=== PATIENT | female | born 1940 | race Caucasian/White ===

== ENCOUNTER 2018-04-02 09:34 | Outpatient (CLI) | payer BC | END 2018-04-02 09:35 | disposition home or self-care (01) | LOC: BICMAMMO 09:34 | PROVIDERS: ATTEND Internal Medicine Hematology & Oncology | DX: N64.89 Other specified disorders of breast (principal); Z85.3 Personal history of malignant neoplasm of breast | CPT/HCPCS: 77066; G0279 ==

== ENCOUNTER 2018-06-13 13:21 | Outpatient (CLI) | payer BC ==
--- NOTE | 2018-06-13 16:36 | MRI ---
MRI LUMBAR SPINE NONCONTRAST: DATE: 06/13/2018 HISTORY: A 78-year-old female with M47.816, facet arthritis, degenerative, lumbar spine. Chronic low back pain and bilateral lumbar radiculopathy. COMPARISON: No prior MRIs or CTs of the lumbar spine. FINDINGS: There are five lumbar type vertebrae. Vertebral body heights are maintained. No major bone marrow s ignal abnormality identified. Moderate disk space narrowing at T11-T12. Mild disk space narrowing a t L4-L5. Moderate to severe disk space narrowing at L5-S1 (with adjacent mild modic type I endplate signal changes). At the mid and lower lumbar spine, the spinal canal is diffusely small in caliber o n a developmental basis due to congenitally short pedicles. This is exacerbated by lumbar spondylosi s. This is not true in the upper lumbar spine. Furthermore, in the lower lumbar spine, there is prom inent epidural fat, which further narrows the thecal sac. T12-L1: Very mild central and bilateral paracentral broad-based disk protrusion. No central stenosi s or neural foraminal stenosis. L1-L2: The conus medullaris terminates at this level. Small broad-based central and bilateral parac entral disk protrusion. No central stenosis. No neural foraminal stenosis. L2-L3: Mild diffuse disk bulge. No high grade neural foraminal stenosis. Mild central spinal canal stenosis. Moderate thecal sac stenosis. Mild bilateral degenerative facet changes. L3-L4: Diffuse disk bulge. Moderate ligamentum flavum thickening. Moderate bilateral degenerative facet changes. Mild bilateral neural foraminal stenosis. Moderate central spinal canal stenosis. M oderate to severe thecal sac stenosis. L4-L5: Bilateral moderate to severe degenerative facet changes result in a mild grade 1 anterolisthe sis of L4 on L5. Thickened ligamentum flavum. Mild diffuse disk bulge. Mild bilateral neural rufus inal stenosis. Moderate to severe central spinal canal stenosis. Severe thecal sac stenosis. L5-S1: Mild diffuse disk bulge. Posterior midline annular fissure. Bilateral degenerative facet ch anges, mild on the right and moderate to severe on the left. No significant neural foraminal stenosi s, although the lateral component of the broad-based disk-osteophyte complex on the right contacts th e exiting right L5 nerve root, perhaps mildly indenting it. Mild to moderate central spinal canal st enosis. Moderate to severe thecal sac stenosis due to epidural lipomatosis. IMPRESSION: 1. Lumbar spondylosis, including facet osteoarthrosis at several levels, and high grade degenerative disk changes at L5-S1. 2. Mild grade 1 spondylolisthesis at L4-L5 due to bilateral high grade facet osteoarthrosis. 3. High grade central spinal canal stenosis at L3-L4 and at L4-L5. 4. No high grade neural foraminal stenosis at any level. MARA Burnham POS: FARHAN
== END 2018-06-13 13:22 | disposition home or self-care (01) ==
LOC: SCSMRI 13:21
PROVIDERS: ATTEND Family Medicine
DX: M47.896 Other spondylosis, lumbar region (principal); M47.897 Other spondylosis, lumbosacral region; M43.16 Spondylolisthesis, lumbar region; M48.061 Spinal stenosis, lumbar region without neurogenic claudication
CPT/HCPCS: 72148

== ENCOUNTER 2018-10-28 13:45 | Outpatient (CLI) | payer BC | END 2018-10-28 13:46 | disposition home or self-care (01) | LOC: BICMAMMO 13:45 | PROVIDERS: ATTEND Specialist | DX: C50.811 Malignant neoplasm of overlapping sites of right female breast (principal); L90.5 Scar conditions and fibrosis of skin; Z98.890 Other specified postprocedural states | CPT/HCPCS: G0279 ==

== ENCOUNTER 2019-08-25 12:41 | Outpatient (CLI) | payer BC ==
--- NOTE | 2019-08-26 10:49 | PFT ---
PATIENT HISTORY: HEIGHT: 67 IN WEIGHT: 220 LBS SMOKER: NO HOW LONG: NEVER PACKS PER DAY: PRODUCTIVE COUGH: LUNG DISEASE: PHYSICIAN INTERPRETATION FINAL REPORT: Patient had good effort and good cooperation. FVC 2.48 (87%), FEV1 1.80 (84%), FEV1/FVC 0.73. RV 1.67 (75%), TLC 4.44 (87%) DIFFUSION 10.18 (46%) The FEV1 and FVC fall within the lower limits of normal. The ratio is also normal suggesting there is no evidence of obstructive air flow limitation. Residual Volume is mildly reduced. The Total Lung Capacity falls within the normal limits. The Diffusion Capacity is moderately impaired. Compared to 2015, these values are stable. There has been an insignificant improvement in the FVC, stable FEV1, and insignificant reduction to the Diffusion Capacity. IMPRESSION: Overall, these pulmonary function studies are most consistent with isolated reduced Diffusion Capacity with low normal spirometry values that have been stable since 2015. Shipping Weigher: JUSTIN Gun Synchronizer: JUSTIN GRIFFIN
== END 2019-08-25 12:42 | disposition home or self-care (01) ==
LOC: CP 12:41
PROVIDERS: ATTEND Internal Medicine
DX: R06.09 Other forms of dyspnea (principal)
CPT/HCPCS: 94060; 94727; 94729

== ENCOUNTER 2021-02-21 10:15 | Outpatient (CLI) | payer MEDICARE, BC | END 2021-02-21 10:16 | disposition home or self-care (01) | LOC: BICMAMMO 10:15 | PROVIDERS: ATTEND Internal Medicine Hematology & Oncology | DX: Z08 Encounter for follow-up examination after completed treatment for malignant neoplasm (principal); Z85.3 Personal history of malignant neoplasm of breast | CPT/HCPCS: 77066; G0279 ==

== ENCOUNTER 2023-07-08 10:13 | Outpatient (CLI) | payer MEDICARE | END 2023-07-08 10:14 | disposition home or self-care (01) | LOC: BICMAMMO 10:13 | PROVIDERS: ATTEND Internal Medicine | DX: Z12.31 Encounter for screening mammogram for malignant neoplasm of breast (principal); Z91.89 Other specified personal risk factors, not elsewhere classified; Z98.890 Other specified postprocedural states | CPT/HCPCS: 77063; 77067 ==

== ENCOUNTER 2024-08-18 19:49 | Inpatient (IN) | payer MEDICARE ==
[2024-08-18] MEDS ORDERED: Ipratropium/Albuterol 3 ML NEB NEB PRN (21:00)
[2024-08-18 22:02] VITALS: BMI 35.1
[2024-08-18] MEDS: Morphine 2 MG/ML VIAL SLOW IVP PRN (22:14)
[2024-08-18] MEDS: Famotidine/PF 20 mg/2ml Vial SLOW IVP SCH (22:14)
[2024-08-18] MEDS: Sodium Chloride 0.9% 1,000 ML IV SCH ×2 (22:15→23:45)
[2024-08-18] MEDS: Acetaminophen 325 MG TAB PO SCH (23:43)
[2024-08-18] MEDS: Phytonadione 5 MG TAB PO SCH (23:59)
[2024-08-19] MEDS: Acetaminophen/Codeine 30-300mg Tablet PO PRN (00:03)
[2024-08-19] MEDS: Levothyroxine Sodium 25 MCG TAB PO SCH (00:15)
[2024-08-19 01:34] LABS: INR-International Normal Ratio 2.3; PTT 35.4 sec (22.9-36.1); Prothrombin Time 25.1 sec (12.0-14.7)
[2024-08-19 05:16] LABS: Anion Gap 14 mmol/L (10-20); BUN (Urea Nitrogen) 13 mg/dL (9.8-20.1); Calc. Creatinine Clearance 89 mL/min (70-130); Calcium 8.8 mg/dL (7.8-10.44); Carbon Dioxide 22 mmol/L (23-31); Chloride 107 mmol/L (98-107); Estimated GFR 81; Glucose 149 mg/dL (83-110); Potassium 4.3 mmol/L (3.5-5.1); Sodium 139 mmol/L (136-145)
[2024-08-19 05:59] LABS: #Basophils 0.03 10x3/uL (0.0-0.2); #Eosinophils Less than 0.03 10x3/uL (0.0-0.7); %Basophils 0.2 % (0.0-1.0); %Lymphocytes 10.1 % (21.0-51.0); %Monocytes 7.6 % (0.0-10.0); %Neutrophils 81.6 % (42.0-75.0); Hematocrit 51.2 % (36.0-47.0); Hemoglobin 16.2 g/dL (12.0-16.0); Mean Corpuscular HGB CONC 31.6 g/dL (32.0-36.0); Mean Corpuscular Hemoglobin 29.6 pg (27.0-31.0); Mean Corpuscular Volume 93.4 fL (78.0-98.0); Mean Platelet Volume 10.2 fL (7.4-10.4); Platelet Count 216 10x3/uL (130-400); RBC Distribution Width 14.8 % (11.5-14.5); Red Blood Cell (RBC) Count 5.48 mill/uL (4.20-5.40)
[2024-08-19 06:46] LABS: INR-International Normal Ratio 2.1; PTT 38.6 sec (22.9-36.1); Prothrombin Time 24.1 sec (12.0-14.7)
[2024-08-19] MEDS: Lactulose 20 GM (30 mL) UDCUP PO SCH (08:33)
[2024-08-19] MEDS: Oxybutynin ER 5 MG TAB PO SCH (09:04)
[2024-08-19] MEDS: Senokot S 8.6-50 MG TAB PO SCH (09:17)
[2024-08-19] MEDS: Polyethylene Glycol 3350 17 GM Packet PO SCH (09:17)
[2024-08-19] MEDS: Carvedilol 3.125 MG TAB PO SCH (21:50)
[2024-08-20 04:46] LABS: #Basophils 0.04 10x3/uL (0.0-0.2); %Basophils 0.3 % (0.0-1.0); %Eosinophils 0.8 % (0.0-10.0); %Lymphocytes 13.3 % (21.0-51.0); %Monocytes 10.1 % (0.0-10.0); %Neutrophils 75.1 % (42.0-75.0); Hematocrit 49.9 % (36.0-47.0); Hemoglobin 16.2 g/dL (12.0-16.0); Mean Corpuscular HGB CONC 32.5 g/dL (32.0-36.0); Mean Corpuscular Hemoglobin 29.3 pg (27.0-31.0); Mean Corpuscular Volume 90.2 fL (78.0-98.0); Mean Platelet Volume 10.2 fL (7.4-10.4); Platelet Count 220 10x3/uL (130-400); Red Blood Cell (RBC) Count 5.53 mill/uL (4.20-5.40)
[2024-08-20] MEDS: Metoprolol Tartrate 5 MG (5 mL) VIAL IVP SCH (04:51)
[2024-08-20 04:59] LABS: INR-International Normal Ratio 1.9; PTT 43.6 sec (22.9-36.1); Prothrombin Time 21.5 sec (12.0-14.7)
[2024-08-20 05:06] LABS: Troponin I 0.018 ng/mL (< 0.028)
[2024-08-20 05:30] LABS: ALT (SGPT) 17 U/L (8-55); AST (SGOT) 33 U/L (5-34); Albumin 3.5 g/dL (3.4-4.8); Alkaline Phosphatase 93 U/L (40-110); Anion Gap 14 mmol/L (10-20); BUN (Urea Nitrogen) 10 mg/dL (9.8-20.1); Bilirubin, Total 2.5 mg/dL (0.2-1.2); Calc. Creatinine Clearance 94 mL/min (70-130); Calcium 8.8 mg/dL (7.8-10.44); Carbon Dioxide 24 mmol/L (23-31); Chloride 107 mmol/L (98-107); Estimated GFR 86; Globulin 3.5 g/dL (2.4-3.5); Glucose 117 mg/dL (83-110); Potassium 3.5 mmol/L (3.5-5.1); Sodium 141 mmol/L (136-145)
[2024-08-20 06:30] LABS: Bacteria/HPF None Seen HPF (None Seen); Bilirubin Negative (Negative); Blood, Urine 1+ (Negative); CAUTI Indications for Culture Alt mental st,lethar; Clarity Clear (Clear); Glucose, Urine (Dipstick) Normal (Negative); Ketone, Urine Negative (Negative); Leukocyte Negative Leu/uL (Negative); Nitrite Negative (Negative); Protein, Urine (Dipstick) Negative (Neg-Trace); RBC/HPF 0-3 HPF (0-3); Specific Gravity, Urine 1.006 (1.002-1.036); Squamous Epithelial None Seen HPF (0-3); Urobilinogen Normal mg/dL (Less than 2); WBC/HPF 0-3 HPF (0-3)
[2024-08-20 06:32] LABS: Urine Culture Reflex No No
[2024-08-20] MEDS ORDERED: Electrolyte Replacement Protocol FS PRN (07:30)
[2024-08-20] MEDS: Sodium Chloride 0.9% 1,000 ML IV SCH (08:50)
[2024-08-20] MEDS: Potassium Chloride 20 MEQ in Premix 1 BAG IVPB SCH (08:55)
[2024-08-20] MEDS ORDERED: Levothyroxine Sodium 25 MCG TAB PO SCH (09:00)
[2024-08-20] MEDS: Digoxin 0.5 MG/2 ML AMP SLOW IVP SCH (10:56)
[2024-08-20] MEDS: Diltiazem HCl/D5W 125 MG in Premix 1 BAG IVPB SCH (10:57)
[2024-08-20] MEDS: Atorvastatin Calcium 40 MG TAB PO SCH (11:04)
[2024-08-20] MEDS: Digoxin 0.5 MG/2 ML AMP SLOW IVP ONE (11:26)
[2024-08-20] MEDS ORDERED: Lidocaine 1% PF 5 ML VIAL ONE (14:52)
[2024-08-20] MEDS ORDERED: PROPOFOL 20 ML ONE (14:52)
[2024-08-20] MEDS ORDERED: fentaNYL 50 mcg/mL 1 mL Vial ONE (14:52)
[2024-08-20] MEDS ORDERED: PHENYLEPHRINE-NS 100 MCG/ML 10 ML SYRINGE ONE (14:52)
[2024-08-20] MEDS ORDERED: Rocuronium Bromide 10 MG/ML (10ML VIAL) ONE (14:52)
[2024-08-20] MEDS ORDERED: Etomidate 40 MG (20 mL) VIAL ONE (14:53)
[2024-08-20] MEDS ORDERED: Esmolol 100 MG/10 ML VIAL ONE (15:11)
[2024-08-20 15:43] LABS: Potassium 4.3 mmol/L (3.5-5.1)
[2024-08-20] MEDS ORDERED: CEFAZOLIN 1 GM VIAL ONE (15:51)
[2024-08-20] MEDS ORDERED: fentaNYL PF 100 MCG/2 ML SYRINGE ONE (16:02)
[2024-08-20] MEDS ORDERED: SUGAMMADEX SODIUM 200 MG/2 ML VIAL ONE (16:15)
[2024-08-20] MEDS: CEFAZOLIN 2 GM in Sodium Chloride 0.9% 100 ML IVPB SCH (21:35)
[2024-08-21 04:03] LABS: #Basophils 0.03 10x3/uL (0.0-0.2); %Basophils 0.2 % (0.0-1.0); %Eosinophils 0.8 % (0.0-10.0); %Lymphocytes 14.7 % (21.0-51.0); %Monocytes 13.9 % (0.0-10.0); %Neutrophils 70.1 % (42.0-75.0); Hematocrit 40.7 % (36.0-47.0); Hemoglobin 12.9 g/dL (12.0-16.0); Mean Corpuscular HGB CONC 31.7 g/dL (32.0-36.0); Mean Corpuscular Hemoglobin 29.3 pg (27.0-31.0); Mean Corpuscular Volume 92.5 fL (78.0-98.0); Mean Platelet Volume 10.5 fL (7.4-10.4); Platelet Count 179 10x3/uL (130-400); RBC Distribution Width 15.1 % (11.5-14.5)
[2024-08-21 04:06] LABS: INR-International Normal Ratio 1.3; Prothrombin Time 16.5 sec (12.0-14.7)
[2024-08-21 04:09] LABS: Anion Gap 10 mmol/L (10-20); BUN (Urea Nitrogen) 16 mg/dL (9.8-20.1); Calc. Creatinine Clearance 90 mL/min (70-130); Carbon Dioxide 23 mmol/L (23-31); Chloride 108 mmol/L (98-107); Estimated GFR 82; Glucose 122 mg/dL (83-110); Potassium 3.4 mmol/L (3.5-5.1); Sodium 138 mmol/L (136-145)
[2024-08-21] MEDS: Digoxin 0.125 MG TAB PO SCH (08:35)
[2024-08-21] MEDS: Potassium Chloride 20 MEQ TAB PO SCH ×2 (08:38→08:45)
[2024-08-21] MEDS: Enoxaparin 100 MG (1 mL) SYRINGE SC SCH (08:50)
[2024-08-21] MEDS: dilTIAZem CD 120 MG CAP PO SCH (10:58)
[2024-08-21] MEDS ORDERED: Warfarin Sodium 2 MG TAB PO SCH (17:00)
[2024-08-21] MEDS: Warfarin Sodium 5 MG TAB PO SCH (17:42)
[2024-08-21] MEDS: Fleet Saline Enema 133 ML BOT PR SCH (17:43)
[2024-08-21] MEDS: Glycerin Adult Supp. (12 ct jar) PR SCH (18:54)
[2024-08-22 05:35] LABS: Hematocrit 37.1 % (36.0-47.0); Hemoglobin 12.1 g/dL (12.0-16.0); Mean Corpuscular HGB CONC 32.6 g/dL (32.0-36.0); Mean Corpuscular Hemoglobin 29.7 pg (27.0-31.0); Mean Corpuscular Volume 91.2 fL (78.0-98.0); Mean Platelet Volume 10.3 fL (7.4-10.4); Platelet Count 203 10x3/uL (130-400); RBC Distribution Width 15.3 % (11.5-14.5); Red Blood Cell (RBC) Count 4.07 mill/uL (4.20-5.40)
[2024-08-22 05:39] LABS: INR-International Normal Ratio 1.4; Prothrombin Time 16.8 sec (12.0-14.7)
[2024-08-22 05:49] LABS: Anion Gap 11 mmol/L (10-20); BUN (Urea Nitrogen) 16 mg/dL (9.8-20.1); Calc. Creatinine Clearance 92 mL/min (70-130); Calcium 8.2 mg/dL (7.8-10.44); Carbon Dioxide 19 mmol/L (23-31); Chloride 111 mmol/L (98-107); Estimated GFR 85; Glucose 136 mg/dL (83-110); Potassium 3.7 mmol/L (3.5-5.1); Sodium 137 mmol/L (136-145)
[2024-08-22 06:14] LABS: Band 7 % (5-11); Burr Cells MODERATE= 6-15 cells HPF (0-1); Elliptocytes SLIGHT = 2-5 cells HPF (0-1); Lymphocytes 3 % (21-51); Macrocytosis SLIGHT = 6-15 cells HPF (0-5); Monocytes 4 % (0-10); Neutrophil 86 % (42-75); Platelet Adequacy Comment Platelets Normal; Poikilocytosis MODERATE=16-30 cells HPF (0-5); Polychromasia SLIGHT = 2-3 cells HPF (0-2)
[2024-08-22 08:29] LABS: ALT (SGPT) 15 U/L (8-55); AST (SGOT) 26 U/L (5-34); Albumin 2.5 g/dL (3.4-4.8); Alkaline Phosphatase 78 U/L (40-110); Bilirubin, Direct 0.6 mg/dL (0.1-0.3); Bilirubin, Total 2.7 mg/dL (0.2-1.2); Lipase 7 U/L (8-78); Protein, Total 5.5 g/dL (5.8-8.1)
[2024-08-22] MEDS: Milk Of Magnesia 30 ML UDCUP PO PRN (08:38)
[2024-08-22] MEDS: Bisacodyl 5 MG TAB PO PRN (08:38)
[2024-08-22] MEDS: dilTIAZem CD 120 MG CAP PO SCH (08:39)
[2024-08-22] MEDS ORDERED: Bisacodyl 5 MG TAB PO PRN (12:03)
[2024-08-22] MEDS: Fleet Saline Enema 133 ML BOT PR SCH (16:55)
[2024-08-22] MEDS: Naloxegol 12.5 MG TAB PO SCH (16:55)
[2024-08-23] MEDS: Ondansetron PF 4 MG/2 ML Vial IVP PRN (05:56)
[2024-08-23 07:03] LABS: #Basophils 0.06 10x3/uL (0.0-0.2); %Basophils 0.2 % (0.0-1.0); %Eosinophils 0.7 % (0.0-10.0); %Lymphocytes 8.7 % (21.0-51.0); %Neutrophils 82.5 % (42.0-75.0); Hematocrit 35.1 % (36.0-47.0); Mean Corpuscular HGB CONC 31.3 g/dL (32.0-36.0); Mean Corpuscular Hemoglobin 29.7 pg (27.0-31.0); Mean Corpuscular Volume 94.9 fL (78.0-98.0); Mean Platelet Volume 10.4 fL (7.4-10.4); Platelet Count 213 10x3/uL (130-400); RBC Distribution Width 15.6 % (11.5-14.5)
[2024-08-23 07:23] LABS: INR-International Normal Ratio 1.9; Prothrombin Time 22.1 sec (12.0-14.7)
[2024-08-23] MEDS ORDERED: Naloxegol 12.5 MG TAB PO SCH (07:30)
[2024-08-23 07:45] LABS: Anion Gap 9 mmol/L (10-20); BUN (Urea Nitrogen) 21 mg/dL (9.8-20.1); Calc. Creatinine Clearance 80 mL/min (70-130); Carbon Dioxide 21 mmol/L (23-31); Chloride 110 mmol/L (98-107); Estimated GFR 71; Glucose 90 mg/dL (83-110); Magnesium 2.2 mg/dL (1.6-2.6); Potassium 3.2 mmol/L (3.5-5.1); Sodium 137 mmol/L (136-145)
[2024-08-23 07:46] LABS: ALT (SGPT) 15 U/L (8-55); AST (SGOT) 25 U/L (5-34); Albumin 2.1 g/dL (3.4-4.8); Alkaline Phosphatase 80 U/L (40-110); Bilirubin, Direct 0.6 mg/dL (0.1-0.3); Bilirubin, Total 1.8 mg/dL (0.2-1.2); Lipase 7 U/L (8-78); Protein, Total 4.9 g/dL (5.8-8.1)
[2024-08-23] MEDS ORDERED: Polyethylene Glycol 3350 17 GM Packet PO SCH (09:00)
[2024-08-23] MEDS: Potassium Chloride 20 MEQ TAB PO SCH (09:40)
[2024-08-23] MEDS: Warfarin Sodium 2 MG TAB PO SCH (17:31)
[2024-08-24 05:31] LABS: #Basophils 0.05 10x3/uL (0.0-0.2); %Basophils 0.3 % (0.0-1.0); %Eosinophils 1.6 % (0.0-10.0); %Lymphocytes 12.5 % (21.0-51.0); %Monocytes 7.8 % (0.0-10.0); Hemoglobin 8.9 g/dL (12.0-16.0); Mean Corpuscular HGB CONC 29.7 g/dL (32.0-36.0); Mean Corpuscular Hemoglobin 29.6 pg (27.0-31.0); Mean Corpuscular Volume 99.7 fL (78.0-98.0); Mean Platelet Volume 11.9 fL (7.4-10.4); Platelet Count 107 10x3/uL (130-400); RBC Distribution Width 15.8 % (11.5-14.5); Red Blood Cell (RBC) Count 3.01 mill/uL (4.20-5.40)
[2024-08-24 06:30] LABS: INR-International Normal Ratio 2.8; Prothrombin Time 29.4 sec (12.0-14.7)
[2024-08-24 06:57] LABS: Calcium 7.5 mg/dL (7.8-10.44); Chloride 109 mmol/L (98-107); Potassium 3.8 mmol/L (3.5-5.1); Sodium 137 mmol/L (136-145)
[2024-08-24 06:58] LABS: Glucose 90 mg/dL (83-110)
[2024-08-24 06:59] LABS: Anion Gap 11 mmol/L (10-20); Carbon Dioxide 21 mmol/L (23-31)
[2024-08-24 07:02] LABS: BUN (Urea Nitrogen) 21 mg/dL (9.8-20.1); Calc. Creatinine Clearance 92 mL/min (70-130); Estimated GFR 85
[2024-08-24 07:03] LABS: Magnesium 2.1 mg/dL (1.6-2.6)
[2024-08-24] MEDS: Famotidine 20 MG TAB PO SCH (08:18)
[2024-08-24] MEDS: Gabapentin 300 MG CAP PO SCH ×2 (10:21→20:15)
[2024-08-24 10:38] VITALS: BMI 35.1
[2024-08-24 15:56] LABS: Hematocrit 32.9 % (36.0-47.0); Hemoglobin 9.9 g/dL (12.0-16.0); Platelet Count 223 10x3/uL (130-400)
[2024-08-24 16:10] LABS: Iron 23 ug/dL (50-170); Iron Binding Capacity, Total 180 mcg/dL (265-497)
[2024-08-24] MEDS: Aspirin 81 mg Enteric Coated Tablet PO SCH (21:03)
[2024-08-24 21:06] LABS: #Basophils 0.07 10x3/uL (0.0-0.2); %Basophils 0.4 % (0.0-1.0); %Eosinophils 1.5 % (0.0-10.0); %Lymphocytes 10.7 % (21.0-51.0); %Monocytes 9.1 % (0.0-10.0); %Neutrophils 77.2 % (42.0-75.0); Hematocrit 31.3 % (36.0-47.0); Hemoglobin 9.3 g/dL (12.0-16.0); Mean Corpuscular HGB CONC 29.7 g/dL (32.0-36.0); Mean Corpuscular Hemoglobin 29.8 pg (27.0-31.0); Mean Corpuscular Volume 100.3 fL (78.0-98.0); Mean Platelet Volume 10.6 fL (7.4-10.4); Platelet Count 199 10x3/uL (130-400); RBC Distribution Width 15.9 % (11.5-14.5); Red Blood Cell (RBC) Count 3.12 mill/uL (4.20-5.40)
[2024-08-24 21:57] LABS: Anion Gap 15 mmol/L (10-20); BUN (Urea Nitrogen) 17 mg/dL (9.8-20.1); Calc. Creatinine Clearance 98 mL/min (70-130); Calcium 7.7 mg/dL (7.8-10.44); Carbon Dioxide 19 mmol/L (23-31); Chloride 109 mmol/L (98-107); Estimated GFR 87; Glucose 87 mg/dL (83-110); Potassium 3.7 mmol/L (3.5-5.1); Sodium 139 mmol/L (136-145)
[2024-08-24] MEDS: Albumin 5% 12.5 GM (250 mL) BOT IVPB SCH (22:31)
[2024-08-24 23:58] LABS: Troponin I 0.016 ng/mL (< 0.028)
[2024-08-25] MEDS: Lactated Ringer's 500 ML IV SCH (01:20)
[2024-08-25] MEDS: Lactated Ringer's 1,000 ML IV SCH (01:32)
[2024-08-25 05:04] LABS: #Basophils 0.03 10x3/uL (0.0-0.2); %Basophils 0.2 % (0.0-1.0); %Eosinophils 1.8 % (0.0-10.0); %Lymphocytes 11.7 % (21.0-51.0); %Monocytes 10.1 % (0.0-10.0); Hematocrit 27.9 % (36.0-47.0); Hemoglobin 8.8 g/dL (12.0-16.0); Mean Corpuscular HGB CONC 31.5 g/dL (32.0-36.0); Mean Corpuscular Hemoglobin 29.2 pg (27.0-31.0); Mean Corpuscular Volume 92.7 fL (78.0-98.0); Mean Platelet Volume 10.3 fL (7.4-10.4); Platelet Count 207 10x3/uL (130-400); RBC Distribution Width 15.7 % (11.5-14.5); Red Blood Cell (RBC) Count 3.01 mill/uL (4.20-5.40)
[2024-08-25 05:24] LABS: Anion Gap 10 mmol/L (10-20); BUN (Urea Nitrogen) 12 mg/dL (9.8-20.1); Calc. Creatinine Clearance 113 mL/min (70-130); Calcium 7.8 mg/dL (7.8-10.44); Carbon Dioxide 24 mmol/L (23-31); Chloride 107 mmol/L (98-107); Estimated GFR 90; Glucose 85 mg/dL (83-110); Magnesium 1.9 mg/dL (1.6-2.6); Potassium 3.3 mmol/L (3.5-5.1); Sodium 138 mmol/L (136-145)
[2024-08-25 05:30] LABS: INR-International Normal Ratio 2.4; Prothrombin Time 26.4 sec (12.0-14.7)
[2024-08-25] MEDS: Potassium Chloride 20 MEQ TAB PO SCH (06:46)
[2024-08-25] MEDS: Magnesium 2 GM/50 ML(in water) 2 GM in Premix 1 BAG IVPB SCH (08:11)
[2024-08-25] MEDS: Ferrous Sulfate 325 MG TAB PO SCH (08:13)
[2024-08-25] MEDS: Ascorbic Acid 500 mg Chewable Tablet PO SCH (08:13)
[2024-08-25] MEDS: Pantoprazole DR 40 MG TAB PO SCH (08:13)
[2024-08-25] MEDS ORDERED: Albuterol 200 PUFF (6.7GM INHALER) INH PRN (10:40)
[2024-08-25] MEDS ORDERED: Calcium Carbonate 500 MG ChewTAB PO PRN (11:31)
[2024-08-25] MEDS: Warfarin Sodium 3 MG TAB PO SCH (16:18)
[2024-08-25 16:25] VITALS: TEMP 97.6
[2024-08-25] MEDS ORDERED: Warfarin Sodium 2.5 MG TAB PO SCH (17:00)
[2024-08-25] MEDS ORDERED: Warfarin Sodium 2 MG TAB PO SCH (17:00)
[2024-08-25 17:45] VITALS: BP 109/62
== END 2024-08-25 18:41 | DRG 481 ==
LOC: SURG B 20:46 → IMCU/EMU 08-20 04:25 → 2SE 08-20 20:10 → SURG B 08-21 18:36 → UNDODISIN 08-25 14:35
PROVIDERS: ADMIT Surgery; ATTEND Surgery
PROC: 0QS706Z Reposition Left Upper Femur with Intramedullary Internal Fixation Device, Open Approach (ICD-10-PCS; principal; 2024-08-20)
PROC: 30233J1 Transfusion of Nonautologous Serum Albumin into Peripheral Vein, Percutaneous Approach (ICD-10-PCS; 2024-08-24)
DX: S72.001A Fracture of unspecified part of neck of right femur, initial encounter for closed fracture (principal); D62 Acute posthemorrhagic anemia; I48.92 Unspecified atrial flutter; K56.7 Ileus, unspecified; W18.30XA Fall on same level, unspecified, initial encounter; I10 Essential (primary) hypertension; E03.9 Hypothyroidism, unspecified; I25.10 Atherosclerotic heart disease of native coronary artery without angina pectoris; E78.5 Hyperlipidemia, unspecified; J44.9 Chronic obstructive pulmonary disease, unspecified; I48.91 Unspecified atrial fibrillation; K59.00 Constipation, unspecified; D69.6 Thrombocytopenia, unspecified; Z90.710 Acquired absence of both cervix and uterus; Z96.652 Presence of left artificial knee joint; Z79.82 Long term (current) use of aspirin; Z79.01 Long term (current) use of anticoagulants; Z79.899 Other long term (current) drug therapy; Z91.041 Radiographic dye allergy status
CPT/HCPCS: 36415; 36416; 70450; 71045; 71250; 74177; 80048; 80053; 80076; 81001; 82533; 82728; 83540; 83550; 83690; 83735; 83880; 84145; 84443; 84484; 85025; 85046; 85610; 85730; 86850; 86900; 86901; 87040; 93005; 93010; 94660; 97139; C1713; J0690; J1160; J1650; J2272; J2405; J2704; J3010; J3475; J3480; J3490; J7030; J7120; P9045

== ENCOUNTER 2024-09-07 22:05 | Outpatient (CLI) | payer MEDICARE | END 2024-09-07 22:06 | disposition home or self-care (01) | LOC: CT 22:05 | PROVIDERS: ATTEND Physical Medicine & Rehabilitation | DX: R29.818 Other symptoms and signs involving the nervous system (principal); I67.89 Other cerebrovascular disease; G31.9 Degenerative disease of nervous system, unspecified | CPT/HCPCS: 70450 ==

== ENCOUNTER 2024-09-07 22:26 | Inpatient (IN) | payer MEDICARE ==
[~2024-09-07 22:26] MED LIST: Iopamidol-370 76% 500 ML MDV (1 ML CHARGE) ONE
[2024-09-07 22:56] LABS: #Basophils 0.04 10x3/uL (0.0-0.2); %Basophils 0.4 % (0.0-1.0); %Eosinophils 0.7 % (0.0-10.0); %Lymphocytes 16.6 % (21.0-51.0); %Monocytes 12.2 % (0.0-10.0); %Neutrophils 69.8 % (42.0-75.0); Hematocrit 40.8 % (36.0-47.0); Hemoglobin 12.5 g/dL (12.0-16.0); Mean Corpuscular HGB CONC 30.6 g/dL (32.0-36.0); Mean Corpuscular Hemoglobin 29.8 pg (27.0-31.0); Mean Corpuscular Volume 97.1 fL (78.0-98.0); Platelet Count 513 10x3/uL (130-400); RBC Distribution Width 18.7 % (11.5-14.5)
[2024-09-07 23:02] LABS: Actual Bicarbonate (HCO3v) 23.6 mEq/L (22-28); Base Excess 2.3 mEq/L (-2.0 to +3.0); Calcium, Ionized (venous) 1.08 mmol/L (1.16-1.32); Chloride (VBG) 103 mmol/L (98-106); Hematocrit-VBG 40 % (36.0-47.0); Hemoglobin (Hb) 13.7 g/dL (11.7-16.1); Potassium (VBG) 4.09 mmol/L (3.70-5.30); Sodium 139 mmol/L (133-146); pH (venous) 7.548 (7.32-7.43)
[2024-09-07 23:14] LABS: Acetaminophen Less than 10 mcg/mL (Less than 10); Alcohol Less than 10.0 mg/dL (Less than 10); Salicylate Less than 8.0 mg/dL (Less than 8.0)
[2024-09-07 23:20] LABS: ALT (SGPT) 15 U/L (8-55); AST (SGOT) 38 U/L (5-34); Albumin 3.1 g/dL (3.4-4.8); Alkaline Phosphatase 213 U/L (40-110); Anion Gap 15 mmol/L (10-20); BUN (Urea Nitrogen) 11 mg/dL (9.8-20.1); Bilirubin, Total 3.1 mg/dL (0.2-1.2); CK (CPK) 42 U/L (29-168); Calc. Creatinine Clearance 0 mL/min (70-130); Calcium 9.1 mg/dL (7.8-10.44); Carbon Dioxide 19 mmol/L (23-31); Chloride 105 mmol/L (98-107); Estimated GFR 87; Globulin 3.9 g/dL (2.4-3.5); Glucose 92 mg/dL (83-110); Sodium 135 mmol/L (136-145)
[2024-09-07 23:21] LABS: Amphetamine Not Detected (NotDetected); Barbiturates Screen Not Detected (NotDetected); Benzodiazepine Screen Not Detected (NotDetected); Cocaine Metabolite Screen Not Detected (NotDetected); Methadone Not Detected (NotDetected); Methamphetamine Not Detected (NotDetected); Opiate Screen Detected (NotDetected); Oxycodone Screen Not Detected (NotDetected); Phencyclidine (PCP) Not Detected (NotDetected); THC/Cannabinoid Screen Not Detected (NotDetected); Tricyclic Screen Not Detected (NotDetected)
[2024-09-07 23:22] LABS: Bilirubin Negative (Negative); Blood, Urine Negative (Negative); CAUTI Indications for Culture Alt mental st,lethar; Clarity Clear (Clear); Glucose, Urine (Dipstick) Normal (Negative); Ketone, Urine 10 mg/dL (Negative); Leukocyte Negative Leu/uL (Negative); Nitrite Negative (Negative); Protein, Urine (Dipstick) Negative (Neg-Trace); RBC/HPF 0-3 HPF (0-3); Specific Gravity, Urine 1.001 (1.002-1.036); Squamous Epithelial None Seen HPF (0-3); Urobilinogen Normal mg/dL (Less than 2); WBC/HPF 0-3 HPF (0-3)
[2024-09-07 23:23] LABS: Bacteria/HPF 1+ HPF (None Seen)
[2024-09-07 23:24] LABS: Urine Culture Reflex No No
[2024-09-07] MEDS ORDERED: diphenhydrAMINE 50 MG/ML VIAL ONE (23:25)
[2024-09-07] MEDS ORDERED: methylPREDNISolone Sod Succ 40 MG VIAL ONE (23:25)
[2024-09-07] MEDS ORDERED: Famotidine/PF 20 mg/2ml Vial ONE (23:26)
[2024-09-08] MEDS ORDERED: Ondansetron ODT 4 MG TAB PO PRN (03:47)
[2024-09-08] MEDS ORDERED: Ondansetron PF 4 MG/2 ML Vial IVP PRN (03:47)
[2024-09-08] MEDS ORDERED: Acetaminophen 650 MG Suppository PR PRN (03:47)
[2024-09-08 06:32] VITALS: BMI 33.7
[2024-09-08] MEDS ORDERED: WARFARIN IVPB PRN (09:40)
[2024-09-08 10:11] LABS: INR-International Normal Ratio 2.6; Prothrombin Time 27.6 sec (12.0-14.7)
[2024-09-08] MEDS: Famotidine 20 MG TAB PO SCH (10:50)
[2024-09-08] MEDS: Acetaminophen 325 MG TAB PO SCH (10:51)
[2024-09-08] MEDS: Famotidine/PF 20 mg/2ml Vial SLOW IVP SCH (10:51)
[2024-09-08] MEDS: Sodium Chloride 0.9% 1,000 ML IV SCH (10:56)
[2024-09-08] MEDS ORDERED: Warfarin Sodium 2 MG TAB PO SCH (17:00)
[2024-09-08] MEDS: Warfarin Sodium 2 MG TAB PO SCH (18:55)
[2024-09-09 03:57] LABS: #Basophils 0.04 10x3/uL (0.0-0.2); %Basophils 0.5 % (0.0-1.0); %Monocytes 12.1 % (0.0-10.0); Hematocrit 36.3 % (36.0-47.0); Hemoglobin 10.7 g/dL (12.0-16.0); Mean Corpuscular HGB CONC 29.5 g/dL (32.0-36.0); Mean Corpuscular Hemoglobin 29.5 pg (27.0-31.0); Mean Platelet Volume 9.2 fL (7.4-10.4); Platelet Count 401 10x3/uL (130-400); RBC Distribution Width 19.2 % (11.5-14.5); Red Blood Cell (RBC) Count 3.63 mill/uL (4.20-5.40)
[2024-09-09 04:09] LABS: INR-International Normal Ratio 2.9; Prothrombin Time 30.1 sec (12.0-14.7)
[2024-09-09 04:10] LABS: Anion Gap 10 mmol/L (10-20); BUN (Urea Nitrogen) 10 mg/dL (9.8-20.1); Calc. Creatinine Clearance 99 mL/min (70-130); Calcium 8.2 mg/dL (7.8-10.44); Carbon Dioxide 24 mmol/L (23-31); Chloride 106 mmol/L (98-107); Estimated GFR 89; Glucose 94 mg/dL (83-110); Potassium 3.4 mmol/L (3.5-5.1); Sodium 137 mmol/L (136-145)
[2024-09-09] MEDS: Levothyroxine Sodium 25 MCG TAB PO SCH (06:06)
[2024-09-09 08:07] LABS: ALT (SGPT) 11 U/L (8-55); AST (SGOT) 20 U/L (5-34); Albumin 2.7 g/dL (3.4-4.8); Alkaline Phosphatase 166 U/L (40-110); Bilirubin, Direct 0.6 mg/dL (0.1-0.3); Bilirubin, Total 1.8 mg/dL (0.2-1.2); Protein, Total 5.6 g/dL (5.8-8.1)
[2024-09-09] MEDS: Oxybutynin ER 5 MG TAB PO SCH (08:43)
[2024-09-09 09:20] LABS: HBsAg Index 0.28 S/CO (0-0.99); Hep A IgM AB NONREACTIVE (NonReactive); Hep A IgM S/CO 0.18 S/CO (0-0.79); Hep B Core IgM Index 0.07 S/CO (0-0.79); Hep B Surf Ag NONREACTIVE S/CO (NonReactive); Hep C IgG Ab NONREACTIVE S/CO (NonReactive); Hep C Index 0.15 S/CO (0-0.79); Hepatitis B Core IgM Abs NONREACTIVE S/CO (NonReactive)
[2024-09-09] MEDS: Potassium Chloride 20 MEQ TAB PO SCH (11:31)
[2024-09-09 11:52] VITALS: BMI 33.7
[2024-09-10 04:07] LABS: #Basophils 0.05 10x3/uL (0.0-0.2); %Basophils 0.5 % (0.0-1.0); %Eosinophils 1.1 % (0.0-10.0); %Monocytes 12.4 % (0.0-10.0); %Neutrophils 68.7 % (42.0-75.0); Hematocrit 41.6 % (36.0-47.0); Hemoglobin 12.4 g/dL (12.0-16.0); Mean Corpuscular HGB CONC 29.8 g/dL (32.0-36.0); Mean Corpuscular Hemoglobin 29.5 pg (27.0-31.0); Platelet Count 416 10x3/uL (130-400); RBC Distribution Width 18.8 % (11.5-14.5)
[2024-09-10 04:21] LABS: INR-International Normal Ratio 2.6; Prothrombin Time 27.8 sec (12.0-14.7)
[2024-09-10] MEDS: HYDROcodone/Acetaminophen 5/325 mg Tablet PO PRN (04:28)
[2024-09-10 04:34] LABS: ALT (SGPT) 13 U/L (8-55); AST (SGOT) 26 U/L (5-34); Alkaline Phosphatase 208 U/L (40-110); Anion Gap 12 mmol/L (10-20); BUN (Urea Nitrogen) 8 mg/dL (9.8-20.1); Calc. Creatinine Clearance 89 mL/min (70-130); Calcium 8.7 mg/dL (7.8-10.44); Carbon Dioxide 21 mmol/L (23-31); Chloride 109 mmol/L (98-107); Estimated GFR 87; Glucose 97 mg/dL (83-110); Iron 71 ug/dL (50-170); Iron Binding Capacity, Total 256 mcg/dL (265-497); Potassium 3.7 mmol/L (3.5-5.1); Sodium 138 mmol/L (136-145)
[2024-09-10] MEDS: Cyclobenzaprine 10 MG TAB PO PRN (13:05)
[2024-09-10] MEDS ORDERED: Ipratropium/Albuterol 3 ML NEB NEB PRN (14:08)
[2024-09-10] MEDS: Carvedilol 3.125 MG TAB PO SCH ×2 (14:54→22:21)
[2024-09-10] MEDS: Digoxin 0.125 MG TAB PO SCH (14:54)
[2024-09-10] MEDS: ALPRAZolam 0.25 MG TAB PO PRN (14:54)
[2024-09-10] MEDS: Ascorbic Acid 500 mg Chewable Tablet PO SCH (15:53)
[2024-09-10] MEDS: Calcium Carbonate 500 MG ChewTAB PO SCH (18:43)
[2024-09-10] MEDS: Atorvastatin Calcium 40 MG TAB PO SCH (21:26)
[2024-09-10] MEDS: Sertraline 25 MG TAB PO SCH (22:10)
[2024-09-11 05:03] LABS: INR-International Normal Ratio 3.1; Prothrombin Time 31.8 sec (12.0-14.7)
[2024-09-11] MEDS: Digoxin 0.125 MG TAB PO SCH (08:18)
[2024-09-11] MEDS: Warfarin Sodium 2 MG TAB PO SCH (16:53)
[2024-09-12 05:21] LABS: INR-International Normal Ratio 3.5; Prothrombin Time 35.7 sec (12.0-14.7)
[2024-09-12 16:27] VITALS: BP 109/55; TEMP 97.6
[2024-09-14 12:10] LABS: ANA Symphony (Qualitative) Negative (Negative); ANA Symphony (Quantitative) 0.3 Ratio (< 0.7 Negative); EliA Vaculitis New Method **** NEW METHOD ****; dsDNA IgG Antibody 1.2 IU/mL (<10 Negative)
== END 2024-09-12 16:26 | DRG 71 ==
LOC: ERS 22:26 → 2SE 09-08 04:20 → OBSVTOIN 09-10 14:08
PROVIDERS: ADMIT Student in an Organized Health Care Education/Training Program; ATTEND Family Medicine
DX: G93.41 Metabolic encephalopathy (principal); E87.1 Hypo-osmolality and hyponatremia; I10 Essential (primary) hypertension; R74.01 Elevation of levels of liver transaminase levels; E78.5 Hyperlipidemia, unspecified; Z91.041 Radiographic dye allergy status; E03.9 Hypothyroidism, unspecified; Z90.49 Acquired absence of other specified parts of digestive tract; Z90.710 Acquired absence of both cervix and uterus; Z98.890 Other specified postprocedural states; K80.20 Calculus of gallbladder without cholecystitis without obstruction
CPT/HCPCS: 36415; 51702; 70496; 70498; 70551; 71045; 71275; 76705; 80048; 80053; 80074; 80076; 80306; 80307; 81001; 82140; 82550; 82728; 82805; 83516; 83540; 83550; 84443; 85025; 85610; 86015; 86038; 86225; 87040; 87086; 87324; 87449; 93005; 93306; 95700; 95711; 95957; 96374; 96375; G0378; J1200; J2919; J3490; J7030; Q9967

== ENCOUNTER 2024-10-12 11:49 | Inpatient (IN) | payer MEDICARE ==
[2024-10-12 14:43] VITALS: BMI 32.4
[2024-10-12 18:54] LABS: #Basophils 0.05 10x3/uL (0.0-0.2); %Basophils 0.5 % (0.0-1.0); %Eosinophils 1.1 % (0.0-10.0); %Lymphocytes 27.7 % (21.0-51.0); %Monocytes 8.7 % (0.0-10.0); %Neutrophils 61.6 % (42.0-75.0); Hematocrit 43.4 % (36.0-47.0); Mean Corpuscular HGB CONC 32.3 g/dL (32.0-36.0); Mean Corpuscular Hemoglobin 28.6 pg (27.0-31.0); Mean Corpuscular Volume 88.8 fL (78.0-98.0); Mean Platelet Volume 9.7 fL (7.4-10.4); Platelet Count 292 10x3/uL (130-400); RBC Distribution Width 15.7 % (11.5-14.5); Red Blood Cell (RBC) Count 4.89 mill/uL (4.20-5.40)
[2024-10-12 19:16] LABS: Anion Gap 12 mmol/L (10-20); BUN (Urea Nitrogen) 8 mg/dL (9.8-20.1); Calc. Creatinine Clearance 96 mL/min (70-130); Calcium 8.3 mg/dL (7.8-10.44); Carbon Dioxide 21 mmol/L (23-31); Chloride 106 mmol/L (98-107); Estimated GFR 89; Glucose 127 mg/dL (83-110); Potassium 2.9 mmol/L (3.5-5.1); Sodium 136 mmol/L (136-145)
[2024-10-12 20:03] LABS: INR-International Normal Ratio 2.7; Prothrombin Time 29.1 sec (12.0-14.7)
[2024-10-12] MEDS: Piperacillin/Tazobactam 3.375 GM in Sodium Chloride 0.9% 100 ML IVPB SCH ×2 (20:49→20:57)
[2024-10-12] MEDS: Vancomycin (BATCH) 1.75 GM in Premix 1 BAG IVPB SCH ×2 (20:49→21:43)
[2024-10-12] MEDS: Carvedilol 3.125 MG TAB PO SCH (20:56)
[2024-10-12] MEDS: Oxybutynin ER 5 MG TAB PO SCH (20:56)
[2024-10-12] MEDS: Sertraline 25 MG TAB PO SCH (20:56)
[2024-10-12] MEDS ORDERED: Piperacillin/Tazobactam 3.375 GM in Sodium Chloride 0.9% 100 ML IVPB SCH (22:00)
[2024-10-13] MEDS: Piperacillin/Tazobactam 3.375 GM in Sodium Chloride 0.9% 100 ML IVPB SCH (01:24)
[2024-10-13] MEDS: Levothyroxine Sodium 25 MCG TAB PO SCH (06:19)
[2024-10-13] MEDS ORDERED: Vancomycin 1 GM in Premix 1 BAG IVPB SCH (08:00)
[2024-10-13] MEDS: Vancomycin 1 GM in Premix 1 BAG IVPB SCH (08:26)
[2024-10-13] MEDS: FLU (Fluad Triv) TS24-25 (65UP)/MF59C/PF 45 MCG/0.5 ML Syringe IM ONE (08:29)
[2024-10-13 08:53] LABS: Anion Gap 10 mmol/L (10-20); BUN (Urea Nitrogen) 7 mg/dL (9.8-20.1); Calc. Creatinine Clearance 80 mL/min (70-130); Calcium 7.8 mg/dL (7.8-10.44); Carbon Dioxide 21 mmol/L (23-31); Chloride 108 mmol/L (98-107); Estimated GFR 82; Glucose 94 mg/dL (83-110); Magnesium 1.8 mg/dL (1.6-2.6); Sodium 136 mmol/L (136-145)
[2024-10-13 09:26] LABS: INR-International Normal Ratio 2.6; Prothrombin Time 28.3 sec (12.0-14.7)
[2024-10-13] MEDS ORDERED: fentaNYL PF 100 MCG/2 ML SYRINGE ONE (10:39)
[2024-10-13] MEDS ORDERED: PROPOFOL 20 ML ONE (10:40)
[2024-10-13] MEDS ORDERED: Rocuronium Bromide 10 MG/ML (10ML VIAL) ONE (10:40)
[2024-10-13] MEDS ORDERED: SUGAMMADEX SODIUM 200 MG/2 ML VIAL ONE (10:40)
[2024-10-13] MEDS ORDERED: Lidocaine 1% PF 5 ML VIAL ONE (10:40)
[2024-10-13] MEDS ORDERED: Ondansetron PF 4 MG/2 ML Vial ONE (10:40)
[2024-10-13] MEDS ORDERED: PHENYLEPHRINE-NS 100 MCG/ML 10 ML SYRINGE ONE (11:45)
[2024-10-13] MEDS ORDERED: Promethazine HCl 25 MG/ML VIAL IM PRN (12:09)
[2024-10-13] MEDS ORDERED: Ondansetron HCl/PF 4 MG/2 ML Vial IVP PRN (12:09)
[2024-10-13] MEDS ORDERED: Electrolyte Replacement Protocol FS SCH (13:45)
[2024-10-13] MEDS: Potassium Chloride 20 MEQ TAB PO SCH (14:48)
[2024-10-13] MEDS: Magnesium 2 GM/50 ML(in water) 2 GM in Premix 1 BAG IVPB SCH (14:48)
[2024-10-13 16:39] VITALS: BMI 32.4
[2024-10-13] MEDS: Atorvastatin Calcium 40 MG TAB PO SCH (21:01)
[2024-10-14 06:41] LABS: #Basophils 0.05 10x3/uL (0.0-0.2); %Basophils 0.6 % (0.0-1.0); %Eosinophils 4.2 % (0.0-10.0); %Lymphocytes 23.7 % (21.0-51.0); %Monocytes 10.3 % (0.0-10.0); %Neutrophils 60.9 % (42.0-75.0); Hematocrit 41.6 % (36.0-47.0); Hemoglobin 12.9 g/dL (12.0-16.0); Mean Corpuscular Hemoglobin 28.5 pg (27.0-31.0); Mean Platelet Volume 10.1 fL (7.4-10.4); Platelet Count 271 10x3/uL (130-400); Red Blood Cell (RBC) Count 4.52 mill/uL (4.20-5.40)
[2024-10-14 07:04] LABS: Anion Gap 12 mmol/L (10-20); BUN (Urea Nitrogen) 5 mg/dL (9.8-20.1); Calc. Creatinine Clearance 88 mL/min (70-130); Calcium 7.7 mg/dL (7.8-10.44); Carbon Dioxide 22 mmol/L (23-31); Chloride 112 mmol/L (98-107); Estimated GFR 87; Glucose 90 mg/dL (83-110); Magnesium 2.2 mg/dL (1.6-2.6); Potassium 3.7 mmol/L (3.5-5.1); Sodium 142 mmol/L (136-145); Vancomycin, Random 20.6 ug/mL (See Comment)
[2024-10-14] MEDS: fentaNYL 50 mcg/mL 1 mL Vial SLOW IVP PRN (10:23)
[2024-10-14] MEDS: Warfarin Sodium 2 MG TAB PO SCH (16:33)
[2024-10-14] MEDS: Vancomycin HCl 750 MG in Sodium Chloride 0.9% 250 ML 250 ML IVPB SCH (21:05)
[2024-10-14] MEDS: Melatonin 3 MG TAB PO PRN (21:49)
[2024-10-15 05:15] LABS: #Basophils 0.05 10x3/uL (0.0-0.2); %Basophils 0.5 % (0.0-1.0); %Eosinophils 3.7 % (0.0-10.0); %Lymphocytes 25.1 % (21.0-51.0); %Monocytes 10.2 % (0.0-10.0); %Neutrophils 60.1 % (42.0-75.0); Hematocrit 42.1 % (36.0-47.0); Mean Corpuscular HGB CONC 30.9 g/dL (32.0-36.0); Mean Corpuscular Hemoglobin 28.6 pg (27.0-31.0); Mean Corpuscular Volume 92.7 fL (78.0-98.0); Mean Platelet Volume 10.1 fL (7.4-10.4); Platelet Count 249 10x3/uL (130-400); RBC Distribution Width 16.1 % (11.5-14.5); Red Blood Cell (RBC) Count 4.54 mill/uL (4.20-5.40)
[2024-10-15 05:34] LABS: INR-International Normal Ratio 2.9; Prothrombin Time 30.9 sec (12.0-14.7)
[2024-10-15] MEDS: HYDROcodone/Acetaminophen 5/325 mg Tablet PO PRN (09:10)
[2024-10-15] MEDS: Lidocaine 4% Topical Sol 50 ML BOT TOP SCH (09:10)
[2024-10-15 12:57] LABS: Chloride 112 mmol/L (98-107); Potassium 3.8 mmol/L (3.5-5.1); Sodium 138 mmol/L (136-145)
[2024-10-15 12:58] LABS: Calcium 7.9 mg/dL (7.8-10.44); Glucose 139 mg/dL (83-110)
[2024-10-15 13:00] LABS: Anion Gap 12 mmol/L (10-20); Carbon Dioxide 18 mmol/L (23-31)
[2024-10-15 13:02] LABS: BUN (Urea Nitrogen) 12 mg/dL (9.8-20.1)
[2024-10-15] MEDS: Vancomycin HCl 750 MG in Sodium Chloride 0.9% 250 ML 250 ML IVPB SCH (13:20)
[2024-10-15 13:28] LABS: Calc. Creatinine Clearance 33 mL/min (70-130); Estimated GFR 28
[2024-10-15] MEDS: Potassium Chloride 20 MEQ in Lactated Ringer's 1,000 ML IV SCH (16:00)
[2024-10-15] MEDS: Warfarin Sodium 3 MG TAB PO SCH (17:47)
[2024-10-16] MEDS: Vancomycin HCl 750 MG in Sodium Chloride 0.9% 250 ML 250 ML IVPB SCH (00:52)
[2024-10-16 04:57] LABS: #Basophils 0.05 10x3/uL (0.0-0.2); %Basophils 0.6 % (0.0-1.0); %Eosinophils 3.7 % (0.0-10.0); %Lymphocytes 24.2 % (21.0-51.0); %Monocytes 9.3 % (0.0-10.0); %Neutrophils 61.9 % (42.0-75.0); Hematocrit 46.7 % (36.0-47.0); Hemoglobin 13.6 g/dL (12.0-16.0); Mean Corpuscular HGB CONC 29.1 g/dL (32.0-36.0); Mean Corpuscular Hemoglobin 28.3 pg (27.0-31.0); Mean Corpuscular Volume 97.3 fL (78.0-98.0); Mean Platelet Volume 10.3 fL (7.4-10.4); Platelet Count 227 10x3/uL (130-400); RBC Distribution Width 16.2 % (11.5-14.5)
[2024-10-16 04:59] LABS: Anion Gap 12 mmol/L (10-20); BUN (Urea Nitrogen) 13 mg/dL (9.8-20.1); Calc. Creatinine Clearance 33 mL/min (70-130); Calcium 7.9 mg/dL (7.8-10.44); Carbon Dioxide 21 mmol/L (23-31); Chloride 113 mmol/L (98-107); Estimated GFR 28; Glucose 83 mg/dL (83-110); Sodium 142 mmol/L (136-145)
[2024-10-16 05:05] LABS: Vancomycin, Random 39.6 ug/mL (See Comment)
[2024-10-16 05:28] LABS: INR-International Normal Ratio 3.1; Prothrombin Time 32.2 sec (12.0-14.7)
[2024-10-16 05:37] VITALS: TEMP 97.4
[2024-10-16] MEDS ORDERED: Lidocaine 4% Topical Sol 50 ML BOT TOP SCH (09:00)
[2024-10-16] MEDS: AMOXicillin 250 MG CAP PO SCH (16:00)
[2024-10-16 16:47] VITALS: BP 129/78
[2024-10-16] MEDS ORDERED: Sulfameth/Trimethoprim DS 800-160mg TAB PO SCH (21:00)
== END 2024-10-16 18:55 | DRG 857 ==
LOC: SURG A 12:04
PROVIDERS: ADMIT Orthopaedic Surgery; ATTEND Orthopaedic Surgery
PROC: 0JBL0ZZ Excision of Right Upper Leg Subcutaneous Tissue and Fascia, Open Approach (ICD-10-PCS; principal; 2024-10-13)
PROC: 3E02340 Introduction of Influenza Vaccine into Muscle, Percutaneous Approach (ICD-10-PCS; 2024-10-13)
DX: T81.41XA Infection following a procedure, superficial incisional surgical site, initial encounter (principal); N17.9 Acute kidney failure, unspecified; G47.33 Obstructive sleep apnea (adult) (pediatric); E03.9 Hypothyroidism, unspecified; E78.5 Hyperlipidemia, unspecified; I10 Essential (primary) hypertension; Z23 Encounter for immunization; J44.9 Chronic obstructive pulmonary disease, unspecified; Z96.652 Presence of left artificial knee joint; I25.10 Atherosclerotic heart disease of native coronary artery without angina pectoris; B96.20 Unspecified Escherichia coli [E. coli] as the cause of diseases classified elsewhere; Z79.899 Other long term (current) drug therapy; Z79.890 Hormone replacement therapy; Z95.2 Presence of prosthetic heart valve; Z86.73 Personal history of transient ischemic attack (TIA), and cerebral infarction without residual deficits; Z91.041 Radiographic dye allergy status; Z79.01 Long term (current) use of anticoagulants; Z91.013 Allergy to seafood; Y83.8 Other surgical procedures as the cause of abnormal reaction of the patient, or of later complication, without mention of misadventure at the time of the procedure
CPT/HCPCS: 36415; 80048; 80202; 83735; 85025; 85610; 87070; 87077; 87186; 87205; 97139; J2405; J2543; J2704; J3010; J3370; J3370-JW; J3475; J3480; J7050; J7120